=== PATIENT | male | born 1995 | race Caucasian/White ===

== ENCOUNTER 2021-04-07 19:59 | Emergency (ER) | payer SELFPAY ==
[2021-04-07 22:24] LABS: ALT (SGPT) 38 U/L (8-55); AST (SGOT) 26 U/L (5-34); Albumin 4.1 g/dL (3.5-5.0); Alkaline Phosphatase 100 U/L (40-110); Anion Gap 15 mmol/L (10-20); BUN (Urea Nitrogen) 11 mg/dL (8.9-20.6); Bilirubin, Total 0.7 mg/dL (0.2-1.2); Calc. Creatinine Clearance 0 mL/min (70-130); Calcium 9.4 mg/dL (7.8-10.44); Carbon Dioxide 25 mmol/L (22-29); Chloride 98 mmol/L (98-107); Globulin 3.7 g/dL (2.4-3.5); Glucose 417 mg/dL (70-105); Protein, Total 7.8 g/dL (6.0-8.3); Sodium 134 mmol/L (136-145)
== END 2021-04-07 22:44 | disposition home or self-care (01) ==
LOC: ERS 19:59
DX: R73.9 Hyperglycemia, unspecified (principal); K21.9 Gastro-esophageal reflux disease without esophagitis
CPT/HCPCS: 36415; 36416; 80053; 99284

== ENCOUNTER 2022-09-15 18:21 | Day surgery (SDC) | payer BC, SELFPAY ==
[2022-09-15] MEDS ORDERED: Nitroglycerin 0.4 MG TAB 1 EACH ONE ×2 (19:20→19:50)
[2022-09-15] MEDS ORDERED: Ondansetron ODT 4 MG TAB ONE (19:20)
[2022-09-15] MEDS ORDERED: Glucagon 1 MG/ML KIT ONE (19:21)
[2022-09-15] MEDS ORDERED: Dexamethasone 20 MG/5 ML VIAL ONE (21:24)
[2022-09-15] MEDS ORDERED: Succinylcholine 200 MG/10 ml SYRINGE FS ONE (21:24)
[2022-09-15] MEDS ORDERED: Ondansetron PF 4 MG/2 ML Vial ONE (21:24)
[2022-09-15] MEDS ORDERED: PROPOFOL 200 MG/20 ML VIAL ONE (21:24)
[2022-09-15] MEDS ORDERED: Promethazine HCl 25 MG/ML VIAL IM PRN (22:21)
[2022-09-15] MEDS ORDERED: Ondansetron HCl/PF 4 MG/2 ML Vial IVP PRN (22:21)
== END 2022-09-15 23:08 | disposition home or self-care (01) ==
LOC: ERS 18:21 → SDC/OP 21:31
PROVIDERS: ATTEND Internal Medicine
PROC: 0DC58ZZ Extirpation of Matter from Esophagus, Via Natural or Artificial Opening Endoscopic (ICD-10-PCS; principal; 2022-09-15)
PROC: 0DB58ZX Excision of Esophagus, Via Natural or Artificial Opening Endoscopic, Diagnostic (ICD-10-PCS; principal; 2022-09-15)
DX: T18.128A Food in esophagus causing other injury, initial encounter (principal); E66.9 Obesity, unspecified; E11.9 Type 2 diabetes mellitus without complications; Z90.89 Acquired absence of other organs; Y83.1 Surgical operation with implant of artificial internal device as the cause of abnormal reaction of the patient, or of later complication, without mention of misadventure at the time of the procedure
CPT/HCPCS: 88305; 96374; J1100; J1611; J2405; J2704; Q0162